=== PATIENT | female | born 1970 | race Caucasian/White ===

== ENCOUNTER 2017-10-22 15:30 | Emergency (ER) | payer OTHER ==
[~2017-10-22 15:30] MED LIST: ALBU.5I NEB; ALBU0.086 INH; ALBU1AER INH; MUCI600T PO; PRED20 PO; ZITH250T PO
[2017-10-22 16:05] VITALS: BP 132/76; PULSE 105; RESP 18; O2SAT 100
--- NOTE | 2017-10-22 17:16 | PD ---
HPI Chief Complaint: Psychiatric Symptoms Time Seen by Provider: 17:09 Travel History International Travel<30 days: No Contact w/Intl Traveler<30days: No Traveled to known affect area: No History of Present Illness HPI 47 year old female presents to the emergency Department under Knowles act from the local police department after a friend called the police saying she was acting erratic. Patient stated she felt like she was going to and felt extreme dread thinking she was still going to be conscious while she was . Patient said she was Knowles acted by the year ago. She is concerned about being from God. Patient states she did take Suboxone and smoked marijuana today. She is denying any other drug use at this time. Patient denies any alcohol use. Patient is denying any homicidal and suicidal ideations at this time. She is denying any physiological complaints at this time. PFSH Past Medical History Asthma: Yes (USES AN INHALER) Anxiety: Yes Depression: Yes Diabetes: No Diminished Hearing: No Insomnia: Yes Menopausal: No Social History Alcohol Use: Yes (PT STATES " OCCASIONAL") Tobacco Use: Yes (PT STATES " OVER 1 PPD") Substance Use: Yes Allergies-Medications (Allergen,Severity, Reaction): Coded Allergies: No Known Allergies (Unverified , 01/30/14) Reported Meds & Prescriptions Reported Meds & Active Scripts Active Bactrim DS (Sulfamethoxazole-Trimethoprim) 800-160 Mg Tab 1 Tab PO BID Reported Proair Hfa 8.5 GM Inh (Albuterol Sulfate) 90 Mcg/Act Aer 1 Puff INH Q4H PRN 108 mcg/actuation Review of Systems Except as stated in HPI: all other systems reviewed are Neg Physical Exam Narrative GENERAL: Well-nourished, well-developed 47-year-old female in no acute distress. SKIN: Focused skin assessment warm/dry. HEAD: Atraumatic. Normocephalic. EYES: Pupils equal and round. No scleral icterus. No injection or drainage. ENT: No nasal bleeding or discharge. Mucous membranes pink and moist. NECK: Trachea midline. No JVD. CARDIOVASCULAR: Regular rate and rhythm. No murmur appreciated. RESPIRATORY: No accessory muscle use. Clear to auscultation. Breath sounds equal bilaterally. GASTROINTESTINAL: Abdomen soft, non-tender, nondistended. Hepatic and splenic margins not palpable. MUSCULOSKELETAL: No obvious deformities. No clubbing. No cyanosis. No edema. NEUROLOGICAL: Awake and alert. No obvious cranial nerve deficits. Motor grossly within normal limits. Normal speech. Data Data Last Documented VS Vital Signs Date Time Temp Pulse Resp B/P (MAP) Pulse Ox O2 Delivery O2 Flow Rate FiO2 10/22/17 23:25 10/22/17 18:05 97.7 59 18 98 Room Air Orders Orders Complete Blood Count With Diff (10/22/17 17:16) Comprehensive Metabolic Panel (10/22/17 17:16) Urinalysis - C+S If Indicated (10/22/17 17:16) Psych Screen (10/22/17 17:16) Drug Screen, Random Urine (10/22/17 17:16) Diet Regular Basic (10/22/17 Dinner) Urine Culture (10/22/17 19:10) Sulfamet-Trimeth Ds 800-160 Mg (Bactrim (10/22/17 21:00) Ed Discharge Order (10/22/17 23:16) Labs Laboratory Tests Test 10/22/17 19:10 White Blood Count 14.2 TH/MM3 Red Blood Count 5.24 MIL/MM3 Hemoglobin 15.5 GM/DL Hematocrit 44.8 % Mean Corpuscular Volume 85.5 FL Mean Corpuscular Hemoglobin 29.7 PG Mean Corpuscular Hemoglobin Concent 34.7 % Red Cell Distribution Width 13.4 % Platelet Count 360 TH/MM3 Mean Platelet Volume 8.1 FL Neutrophils (%) (Auto) 89.1 % Lymphocytes (%) (Auto) 8.3 % Monocytes (%) (Auto) 2.1 % Eosinophils (%) (Auto) 0.1 % Basophils (%) (Auto) 0.4 % Neutrophils # (Auto) 12.7 TH/MM3 Lymphocytes # (Auto) 1.2 TH/MM3 Monocytes # (Auto) 0.3 TH/MM3 Eosinophils # (Auto) 0.0 TH/MM3 Basophils # (Auto) 0.1 TH/MM3 CBC Comment DIFF FINAL Differential Comment Urine Color LIGHT-YELLOW Urine Turbidity CLEAR Urine pH 5.5 Urine Specific [place] 1.004 Urine Protein NEG mg/dL Urine Glucose (UA) NEG mg/dL Urine Ketones NEG mg/dL Urine Occult Blood NEG Urine Nitrite NEG Urine Bilirubin NEG Urine Urobilinogen LESS THAN 2.0 MG/DL Urine Leukocyte Esterase NEG Urine RBC LESS THAN 1 /hpf Urine WBC 1 /hpf Urine Squamous Epithelial Cells 1 /hpf Urine Bacteria MANY /hpf Microscopic Urinalysis Comment CULTURE INDICATED Blood Urea Nitrogen 11 MG/DL Creatinine 1.01 MG/DL Random Glucose 107 MG/DL Total Protein 8.1 GM/DL Albumin 4.4 GM/DL Calcium Level 9.1 MG/DL Alkaline Phosphatase 68 U/L Aspartate Amino Transf (AST/SGOT) 22 U/L Alanine Aminotransferase (ALT/SGPT) 23 U/L Total Bilirubin 0.7 MG/DL Sodium Level 137 MEQ/L Potassium Level 3.9 MEQ/L Chloride Level 104 MEQ/L Carbon Dioxide Level 24.9 MEQ/L Anion Gap 8 MEQ/L Estimat Glomerular Filtration Rate 59 ML/MIN Urine Opiates Screen NEG Urine Barbiturates Screen NEG Urine Amphetamines Screen NEG Urine Benzodiazepines Screen NEG Urine Cocaine Screen NEG Urine Cannabinoids Screen POS MDM Medical Decision Making Medical Screen Exam Complete: Yes Emergency Medical Condition: Yes Differential Diagnosis Depression versus suicidal ideation versus anxiety versus adjustment disorder versus mood disorder versus bipolar disorder versus schizophrenia versus paranoid disorder versus psychosis versus substance abuse versus alcohol abuse versus alcohol induced psychosis versus homicidality addition versus cutting versus personality disorder Narrative Course Medical clearance initiated for psychiatric care. CBC, CMP, UA, drug screen ordered and pending. Psych screen ordered and pending. DANIEL Zepeda assumes care for this patient for medical clearance. Please see her documentation for further details. Diagnosis Primary Impression: Substance-induced psychotic disorder Scripts Sulfamethoxazole-Trimethoprim (Bactrim DS) 800-160 Mg Tab 1 TAB PO BID for Infection, #10 TAB 0 Refills Prov: Leandra Baires DO 10/22/17 Condition: Stable Marla Gomez Oct 22, 2017 17:16
[2017-10-22] MEDS ORDERED: ALBUAER3 INH (17:58)
[2017-10-22 18:05] VITALS: BP 117/76; PULSE 59; RESP 18; TEMP 97.7; O2SAT 98
[2017-10-22 19:30] LABS: AUTOMATED NEUTROPHIL # 12.7 TH/MM3 (1.8-7.7); BASOPHIL # 0.1 TH/MM3 (0-0.2); BASOPHIL % 0.4 % (0.0-2.0); EOSINOPHIL % 0.1 % (0.0-4.0); HEMATOCRIT 44.8 % (35.0-46.0); HEMOGLOBIN 15.5 GM/DL (11.6-15.3); LYMPH % 8.3 % (9.0-44.0); LYMPHOCYTE # 1.2 TH/MM3 (1.0-4.8); MEAN CELL VOLUME 85.5 FL (80.0-100.0); MEAN CORPUSCULAR HEMOGLOBIN 29.7 PG (27.0-34.0); MEAN CORPUSCULAR HGB CONC 34.7 % (32.0-36.0); MEAN PLATELET VOLUME 8.1 FL (7.0-11.0); MONO % 2.1 % (0.0-8.0); MONOCYTE # 0.3 TH/MM3 (0-0.9); NEUT % 89.1 % (16.0-70.0); PLATELET COUNT 360 TH/MM3 (150-450); RED BLOOD COUNT 5.24 MIL/MM3 (4.00-5.30); RED CELL DISTRIBUTION WIDTH 13.4 % (11.6-17.2); WHITE BLOOD COUNT 14.2 TH/MM3 (4.0-11.0)
[2017-10-22 19:58] LABS: ALBUMIN 4.4 GM/DL (3.4-5.0); AST (GOT) 22 U/L (15-37); BICARBONATE 24.9 MEQ/L (21.0-32.0); BLOOD UREA NITROGEN 11 MG/DL (7-18); CALCIUM 9.1 MG/DL (8.5-10.1); CHLORIDE 104 MEQ/L (98-107); CREATININE 1.01 MG/DL (0.50-1.00); GLOMERULAR FILTRATION RATE 59 ML/MIN (>89); GLUCOSE,RANDOM 107 MG/DL (74-106); SODIUM (NA) 137 MEQ/L (136-145)
[2017-10-22 20:02] LABS: ALKALINE PHOSPHATASE 68 U/L (45-117); ALT (GPT) 23 U/L (10-53); TOTAL BILIRUBIN ADULT 0.7 MG/DL (0.2-1.0); TOTAL PROTEIN 8.1 GM/DL (6.4-8.2)
[2017-10-22 20:29] LABS: BACTERIA, URINE MANY /hpf; BILIRUBIN, URINE NEG (NEG); BLOOD, URINE NEG (NEG); GLUCOSE,URINE NEG (NEG); KETONE, URINE NEG (NEG); NITRITE,URINE NEG (NEG); PH, URINE 5.5 (5.0-8.5); SQUAMOUS EPITHELIAL CELL URINE 1 /hpf (0-5); URINE COLOR LIGHT-YELLOW (YELLW/STRAW); URINE LEUKOCYTE ESTERASE NEG (NEG)
[2017-10-22] MEDS ORDERED: BACT800T5 PO (20:51)
--- NOTE | 2017-10-22 20:53 | PD ---
Physical Exam Date Seen by Provider: Oct 22, 2017 Time Seen by Provider: 20:51 Data Data Last Documented VS Vital Signs Date Time Temp Pulse Resp B/P (MAP) Pulse Ox O2 Delivery O2 Flow Rate FiO2 10/22/17 23:25 10/22/17 18:05 97.7 59 18 98 Room Air Orders Orders Complete Blood Count With Diff (10/22/17 17:16) Comprehensive Metabolic Panel (10/22/17 17:16) Urinalysis - C+S If Indicated (10/22/17 17:16) Psych Screen (10/22/17 17:16) Drug Screen, Random Urine (10/22/17 17:16) Diet Regular Basic (10/22/17 Dinner) Urine Culture (10/22/17 19:10) Sulfamet-Trimeth Ds 800-160 Mg (Bactrim (10/22/17 21:00) Ed Discharge Order (10/22/17 23:16) Labs Laboratory Tests Test 10/22/17 19:10 White Blood Count 14.2 TH/MM3 Red Blood Count 5.24 MIL/MM3 Hemoglobin 15.5 GM/DL Hematocrit 44.8 % Mean Corpuscular Volume 85.5 FL Mean Corpuscular Hemoglobin 29.7 PG Mean Corpuscular Hemoglobin Concent 34.7 % Red Cell Distribution Width 13.4 % Platelet Count 360 TH/MM3 Mean Platelet Volume 8.1 FL Neutrophils (%) (Auto) 89.1 % Lymphocytes (%) (Auto) 8.3 % Monocytes (%) (Auto) 2.1 % Eosinophils (%) (Auto) 0.1 % Basophils (%) (Auto) 0.4 % Neutrophils # (Auto) 12.7 TH/MM3 Lymphocytes # (Auto) 1.2 TH/MM3 Monocytes # (Auto) 0.3 TH/MM3 Eosinophils # (Auto) 0.0 TH/MM3 Basophils # (Auto) 0.1 TH/MM3 CBC Comment DIFF FINAL Differential Comment Urine Color LIGHT-YELLOW Urine Turbidity CLEAR Urine pH 5.5 Urine Specific [place] 1.004 Urine Protein NEG mg/dL Urine Glucose (UA) NEG mg/dL Urine Ketones NEG mg/dL Urine Occult Blood NEG Urine Nitrite NEG Urine Bilirubin NEG Urine Urobilinogen LESS THAN 2.0 MG/DL Urine Leukocyte Esterase NEG Urine RBC LESS THAN 1 /hpf Urine WBC 1 /hpf Urine Squamous Epithelial Cells 1 /hpf Urine Bacteria MANY /hpf Microscopic Urinalysis Comment CULTURE INDICATED Blood Urea Nitrogen 11 MG/DL Creatinine 1.01 MG/DL Random Glucose 107 MG/DL Total Protein 8.1 GM/DL Albumin 4.4 GM/DL Calcium Level 9.1 MG/DL Alkaline Phosphatase 68 U/L Aspartate Amino Transf (AST/SGOT) 22 U/L Alanine Aminotransferase (ALT/SGPT) 23 U/L Total Bilirubin 0.7 MG/DL Sodium Level 137 MEQ/L Potassium Level 3.9 MEQ/L Chloride Level 104 MEQ/L Carbon Dioxide Level 24.9 MEQ/L Anion Gap 8 MEQ/L Estimat Glomerular Filtration Rate 59 ML/MIN Urine Opiates Screen NEG Urine Barbiturates Screen NEG Urine Amphetamines Screen NEG Urine Benzodiazepines Screen NEG Urine Cocaine Screen NEG Urine Cannabinoids Screen POS MDM Supervised Visit with SHIRLEY: No Narrative Course 47-year-old female brought in under a Knowles act initially evaluated by TESSA Covarrubias. Patient was signed out to me with labs pending. On my exam the patient is well-appearing, no CVA tenderness. Denies any UTI symptoms. CBC with mild elevation of the white count, likely stress related. UA positive for bacteria. Tox screen positive for cannabinoids. She is prescribed Bactrim DS twice a day 5 days. First dose administered in the ED. Patient is medically cleared for psychiatric evaluation. Diagnosis Primary Impression: Urinary tract infection Qualified Codes: N39.0 - Urinary tract infection, site not specified Referrals: [facility] Scripts Sulfamethoxazole-Trimethoprim (Bactrim DS) 800-160 Mg Tab 1 TAB PO BID for Infection, #10 TAB 0 Refills Prov: Leandra Baires DO 10/22/17 Destinee Lewis Oct 22, 2017 20:53
[2017-10-22] MEDS ORDERED: SULFAMETHOXAZOLE-TRIMETHOPRIM DS 800-160 MG TAB PO SCH (21:00)
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
== END 2017-10-22 23:26 | disposition home or self-care (01) ==
LOC: NEPJ 15:30
DX: F19.959 Other psychoactive substance use, unspecified with psychoactive substance-induced psychotic disorder, unspecified (principal); F12.90 Cannabis use, unspecified, uncomplicated; N39.0 Urinary tract infection, site not specified; B96.20 Unspecified Escherichia coli [E. coli] as the cause of diseases classified elsewhere; J45.909 Unspecified asthma, uncomplicated; F32.9 Major depressive disorder, single episode, unspecified; F41.9 Anxiety disorder, unspecified; F17.210 Nicotine dependence, cigarettes, uncomplicated; Z16.11 Resistance to penicillins
CPT/HCPCS: 80053; 80307; 81001; 85025; 87077; 87086; 87186; 99284